=== PATIENT | female | born 1945 | race Caucasian/White ===

== ENCOUNTER → 2025-02-18 12:27 | Outpatient (REF) | payer OTHER, SELFPAY | LOC: EMG 12:27 | PROVIDERS: ATTENDING PHYSICIAN Nurse Practitioner Family | DX: M25.512 Pain in left shoulder (principal); M79.601 Pain in right arm; M79.602 Pain in left arm; M79.641 Pain in right hand; M79.642 Pain in left hand; M54.2 Cervicalgia; R20.0 Anesthesia of skin | CPT/HCPCS: 95886; 95911 ==

== ENCOUNTER → 2025-03-06 07:22 | Outpatient (REF) | payer OTHER, SELFPAY | LOC: RAD 07:22 | PROVIDERS: ATTENDING PHYSICIAN Nurse Practitioner Family | DX: M54.2 Cervicalgia (principal); M25.512 Pain in left shoulder; M79.601 Pain in right arm; M79.602 Pain in left arm; M79.641 Pain in right hand; M79.642 Pain in left hand | CPT/HCPCS: 72050; 73030; 73130 ==